=== PATIENT | female | born 1970 | race Caucasian/White ===

== ENCOUNTER → 2017-10-30 12:44 | Outpatient (CLI) | payer OTHER, SELFPAY ==
[2017-10-30 14:02] LABS: Alanine Aminotransferase 28 IU/L (9-52); Albumin 4.3 g/dL (3.5-5.0); Albumin Globulin Ratio 1.4 (1.0-2.8); Alkaline Phosphatase 62 U/L (38-126); Aspartate Aminotransferase 21 IU/L (14-36); Bilirubin Total 0.4 mg/dL (0.2-1.3); Calcium 9.7 mg/dL (8.4-10.2); Estimated Glomerular Filt Rate > 60.0 mL/min (>60); Globulin 3.1 g/dL (1.7-4.1); Glucose 86 mg/dL (70-100); HEMOLYSIS < 15 (0-50); Potassium 4.3 mmol/L (3.4-5.1); Sodium 141 mmol/L (137-145); Total Protein 7.4 g/dL (6.3-8.2)
[2017-10-30 14:31] LABS: TSH w/ Reflex to FT4 0.41 uIU/mL (0.47-4.68)
[2017-10-30 17:40] LABS: Free T4, Direct Thyroxine 0.79 ng/dL (0.78-2.19)
== END ==
PROVIDERS: Family Provider Family Medicine; PCP Family Medicine; Visit Provider Family Medicine
DX: E03.9 Hypothyroidism, unspecified (principal); N95.1 Menopausal and female climacteric states; T39.1X1A Poisoning by 4-Aminophenol derivatives, accidental (unintentional), initial encounter
CPT/HCPCS: 36415; 80053; 83001; 84439; 84443

== ENCOUNTER → 2017-12-13 10:09 | Outpatient (CLI) | payer OTHER, SELFPAY ==
[2017-12-13 11:44] LABS: TSH w/ Reflex to FT4 2.18 uIU/mL (0.47-4.68)
== END ==
PROVIDERS: PCP Family Medicine; Visit Provider Family Medicine
DX: E03.9 Hypothyroidism, unspecified (principal)
CPT/HCPCS: 36415; 84443

== ENCOUNTER → 2017-12-18 06:59 | Outpatient (CLI) | payer OTHER, SELFPAY ==
--- NOTE | 2017-12-18 | DI.CT.S_ITS ---
PROCEDURE: CT ABDOMEN W CON INDICATIONS: Left upper quadrant pain TECHNIQUE: After the administration of oral and intravenous contrast, 5 mm thick sections acquired from the diaphragms to the iliac crests. 5 mm thick coronal and sagittal reformats were acquired. For radiation dose reduction, the following was used: automated exposure control, adjustment of mA and/or kV according to patient size. COMPARISON: [facility], US, ABDOMEN COMPLETE, 07/12/2017, 15:58. [facility], CT, CT ABD PELVIS W CON, 04/17/2016, 22:07. FINDINGS: Image quality: Excellent. Lung bases: Lung bases are clear. Heart size is normal. Solid organs: Liver is normal in size and enhancement. Gallbladder has been previously resected. Biliary system is non dilated. Pancreas enhances normally. Spleen is normal in size and enhancement. No adrenal nodules. Kidneys are normal in size, without hydronephrosis. Peritoneum and bowel: Contrast enhanced bowel loops appear normal in caliber. No free fluid or air. Nodes and vessels: No retroperitoneal or mesenteric adenopathy by size criteria. Aorta and inferior vena cava are normal in size. Bones: No suspicious bony lesions. No vertebral body compression fractures. Miscellaneous: No ventral hernias. IMPRESSION: Prior cholecystectomy. No infection or neoplasm found. The source of persistent left upper quadrant pain is not identified. The lung bases appear normal. Dictated by: Jose Luis Garza M.D. on 12/18/2017 at 9:25 Approved by: Jose Luis Garza M.D. on 12/18/2017 at 9:27
== END ==
PROVIDERS: Family Provider Family Medicine; PCP Family Medicine; Visit Provider Family Medicine
DX: R10.12 Left upper quadrant pain (principal)
CPT/HCPCS: 74160; Q9967

== ENCOUNTER → 2018-01-06 11:16 | Outpatient (CLI) | payer OTHER, SELFPAY ==
[2018-01-06 13:36] LABS: Urine N gonorrhoeae NOT DETECTED
[2018-01-06 13:51] LABS: Urine Chlamydia NOT DETECTED
[2018-01-06 16:20] LABS: HIV 1 and 2 Antibody NEGATIVE (NEGATIVE); Hep C Virus Ab w/Reflex Quant NEGATIVE s/c (NEGATIVE)
[2018-01-10 09:41] LABS: Rapid Plasma Reagin NON-REACTIVE
== END ==
PROVIDERS: Family Provider Family Medicine; PCP Family Medicine; Visit Provider Family Medicine
DX: Z20.2 Contact with and (suspected) exposure to infections with a predominantly sexual mode of transmission (principal)
CPT/HCPCS: 36415; 86592; 86703; 86803; 87491; 87591

== ENCOUNTER → 2018-03-25 07:38 | Outpatient (CLI) | payer OTHER, SELFPAY ==
[2018-03-25 09:03] LABS: Add Manual Diff / Slide Review NO; Basophils Percent Auto 0.4 % (0-2); Eosinophils Percent Auto 0.8 % (2-4); Hemoglobin 14.5 g/dL (12.0-16.0); Lymphocytes Percent Auto 28.2 % (25-40); Mean Corpuscular HGB Conc 34.5 % (30-36); Mean Corpuscular Hemoglobin 30.6 PG (26-34); Mean Corpuscular Volume 88.9 fL (80-100); Monocytes Percent Auto 6.9 % (3-14); Neutrophils Absolute Auto 4500 /uL (3000-5900); Neutrophils Percent Auto 63.7 % (50-75); Platelet Count 307 X10^3/uL (150-400); Red Blood Cell Count 4.73 X10^6/uL (4.0-5.2); Red Cell Distribution Width 13.4 % (11.6-14.8)
[2018-03-25 09:12] LABS: Alanine Aminotransferase 36 IU/L (9-52); Albumin 4.6 g/dL (3.5-5.0); Albumin Globulin Ratio 1.4 (1.0-2.8); Alkaline Phosphatase 59 U/L (38-126); Aspartate Aminotransferase 25 IU/L (14-36); BUN Creatinine Ratio 28.6 (6-22); Bilirubin Total 0.6 mg/dL (0.2-1.3); Blood Urea Nitrogen 20 mg/dL (7-17); Calcium 9.2 mg/dL (8.4-10.2); Carbon Dioxide 28 mmol/L (22-32); Chloride 105 mmol/L (98-107); Cholesterol 225 mg/dL (140-199); Estimated Glomerular Filt Rate > 60.0 mL/min (>60); Globulin 3.4 g/dL (1.7-4.1); Glucose 104 mg/dL (70-100); HDL Cholesterol 59 mg/dL (40-60); HEMOLYSIS < 15 (0-50); LDL Cholesterol Calculated 148 mg/dL (<100); Potassium 4.3 mmol/L (3.4-5.1); Sodium 145 mmol/L (137-145); Triglycerides 91 mg/dL (35-150)
[2018-03-25 10:12] LABS: TSH w/ Reflex to FT4 4.33 uIU/mL (0.47-4.68)
== END ==
PROVIDERS: Family Provider Family Medicine; PCP Family Medicine; Visit Provider Family Medicine
DX: Z00.00 Encounter for general adult medical examination without abnormal findings (principal); E03.9 Hypothyroidism, unspecified; I10 Essential (primary) hypertension
CPT/HCPCS: 36415; 80053; 80061; 84443; 85025

== ENCOUNTER → 2018-04-04 16:04 | Outpatient (CLI) | payer OTHER, SELFPAY ==
[2018-04-04 16:51] LABS: Add Manual Diff / Slide Review NO; Basophils Percent Auto 0.3 % (0-2); Eosinophils Percent Auto 0.7 % (2-4); Hematocrit 40.3 % (36-46); Hemoglobin 13.9 g/dL (12.0-16.0); Lymphocytes Percent Auto 29.5 % (25-40); Mean Corpuscular HGB Conc 34.6 % (30-36); Mean Corpuscular Hemoglobin 31.2 PG (26-34); Mean Corpuscular Volume 90.1 fL (80-100); Monocytes Percent Auto 6.3 % (3-14); Neutrophils Absolute Auto 5600 /uL (3000-5900); Neutrophils Percent Auto 63.2 % (50-75); Platelet Count 292 X10^3/uL (150-400); Red Blood Cell Count 4.47 X10^6/uL (4.0-5.2); Red Cell Distribution Width 13.7 % (11.6-14.8); White Blood Cell Count 8.9 X10^3/uL (4.5-11.0)
[2018-04-04 17:26] LABS: Alanine Aminotransferase 43 IU/L (9-52); Albumin 4.5 g/dL (3.5-5.0); Albumin Globulin Ratio 1.4 (1.0-2.8); Alkaline Phosphatase 54 U/L (38-126); Aspartate Aminotransferase 29 IU/L (14-36); Bilirubin Total 0.3 mg/dL (0.2-1.3); Blood Urea Nitrogen 12 mg/dL (7-17); Calcium 8.9 mg/dL (8.4-10.2); Carbon Dioxide 28 mmol/L (22-32); Chloride 102 mmol/L (98-107); Estimated Glomerular Filt Rate > 60.0 mL/min (>60); Globulin 3.2 g/dL (1.7-4.1); Glucose 83 mg/dL (70-100); HEMOLYSIS < 15 (0-50); Potassium 3.7 mmol/L (3.4-5.1); Sodium 141 mmol/L (137-145); Total Protein 7.7 g/dL (6.3-8.2)
[2018-04-04 17:40] LABS: HCG Quantitative /Beta subunit < 2.39 mIU/mL
[2018-04-04 17:42] LABS: C-Reactive Protein Quant < 0.5 mg/dL (<1.0); Free T3, Triiodothyronine Free 2.63 pg/mL (2.77-5.27); Free T4, Direct Thyroxine 0.78 ng/dL (0.78-2.19)
[2018-04-04 18:20] LABS: Erythrocyte Sedimentation Rate 13 MM/HR (0-20)
== END ==
PROVIDERS: Family Provider Family Medicine; PCP Family Medicine; Visit Provider Family Medicine
DX: E03.9 Hypothyroidism, unspecified (principal); R53.83 Other fatigue
CPT/HCPCS: 36415; 80053; 84439; 84481; 84702; 85025; 85651; 86140

== ENCOUNTER → 2018-06-05 08:53 | Outpatient (CLI) | payer OTHER, SELFPAY ==
[2018-06-05 10:22] LABS: Free T3, Triiodothyronine Free 2.73 pg/mL (2.77-5.27)
[2018-06-05 10:35] LABS: Thyroid Stimulating Hormone 2.66 uIU/mL (0.47-4.68)
== END ==
PROVIDERS: PCP Family Medicine; Visit Provider Family Medicine
DX: E03.9 Hypothyroidism, unspecified (principal)
CPT/HCPCS: 36415; 84439; 84443; 84481

== ENCOUNTER → 2018-06-17 11:05 | Outpatient (CLI) | payer OTHER, SELFPAY ==
--- NOTE | 2018-06-17 | DI.MG.S_ITS ---
BILATERAL DIGITAL SCREENING MAMMOGRAM 3D/2D WITH CAD: 06/17/2018 CLINICAL: Routine screening. Comparison is made to exams dated: 01/23/2017 mammogram - [facility], 01/10/2016 mammogram, and 10/26/2014 mammogram - [facility]. There are scattered fibroglandular elements in both breasts. Current study was also evaluated with a Computer Aided Detection (CAD) system. No significant masses, calcifications, or other findings are seen in either breast. There has been no significant interval change. IMPRESSION: NEGATIVE There is no mammographic evidence of malignancy. A 1 year screening mammogram is recommended. This exam was interpreted at Station ID: [id number]. NOTE: For mammograms, a report in lay terms will be sent to the patient. Approximately 15% of breast malignancies will not be visualized mammographically. In the management of a palpable breast mass, a negative mammogram must not discourage biopsy of a clinically suspicious lesion. Electronically Signed By: Cookie medina/jesus:06/17/2018 16:33:08 letter sent: Normal Exam ACR BI-RADS Category 1: Negative [id number]
== END ==
PROVIDERS: Family Provider Family Medicine; PCP Family Medicine; Visit Provider Family Medicine
DX: Z12.31 Encounter for screening mammogram for malignant neoplasm of breast (principal)
CPT/HCPCS: 77063; 77067

== ENCOUNTER → 2018-08-16 12:06 | Outpatient (CLI) | payer OTHER, SELFPAY ==
[2018-08-16 13:50] LABS: Free T3, Triiodothyronine Free 5.56 pg/mL (2.77-5.27); Free T4, Direct Thyroxine 0.73 ng/dL (0.78-2.19)
[2018-08-16 14:04] LABS: Thyroid Stimulating Hormone 1.91 uIU/mL (0.47-4.68)
== END ==
LOC: LAB 12:08
PROVIDERS: Family Provider Family Medicine; PCP Family Medicine; Visit Provider Family Medicine
DX: E03.9 Hypothyroidism, unspecified (principal)
CPT/HCPCS: 36415; 84439; 84443; 84481

== ENCOUNTER → 2018-09-06 10:02 | Outpatient (CLI) | payer OTHER, SELFPAY ==
[2018-09-06 10:47] LABS: Add Manual Diff / Slide Review NO; Basophils Absolute Auto 0 /uL (0-100); Basophils Percent Auto 0.6 % (0-2); Eosinophils Absolute Auto 100 /uL (0-450); Hematocrit 39.8 % (36-46); Lymphocytes Absolute Auto 1800 /uL (1100-4500); Lymphocytes Percent Auto 31.1 % (25-40); Mean Corpuscular HGB Conc 35.2 % (30-36); Mean Corpuscular Hemoglobin 30.9 PG (26-34); Mean Corpuscular Volume 87.8 fL (80-100); Monocytes Absolute Auto 400 /uL (0-900); Monocytes Percent Auto 6.7 % (3-14); Neutrophils Absolute Auto 3500 /uL (1500-7000); Neutrophils Percent Auto 60.6 % (50-75); Platelet Count 321 X10^3/uL (150-400); Red Blood Cell Count 4.53 X10^6/uL (4.0-5.2); Red Cell Distribution Width 12.7 % (11.6-14.8); White Blood Cell Count 5.8 X10^3/uL (4.5-11.0)
[2018-09-06 11:05] LABS: HEMOLYSIS < 15 (0-50); Iron 67 ug/dL (37-170)
[2018-09-06 11:07] LABS: Alanine Aminotransferase 29 IU/L (9-52); Albumin 4.3 g/dL (3.5-5.0); Albumin Globulin Ratio 1.3 (1.0-2.8); Alkaline Phosphatase 67 U/L (38-126); Aspartate Aminotransferase 26 IU/L (14-36); BUN Creatinine Ratio 21.7 (6-22); Bilirubin Total 0.5 mg/dL (0.2-1.3); Blood Urea Nitrogen 13 mg/dL (7-17); Carbon Dioxide 33 mmol/L (22-32); Chloride 97 mmol/L (98-107); Cholesterol 200 mg/dL (140-199); Estimated Glomerular Filt Rate > 60.0 mL/min (>60); Globulin 3.3 g/dL (1.7-4.1); Glucose 97 mg/dL (70-100); HDL Cholesterol 52 mg/dL (40-60); HEMOLYSIS < 15 (0-50); LDL Cholesterol Calculated 130 mg/dL (<100); Potassium 3.5 mmol/L (3.4-5.1); Sodium 139 mmol/L (137-145); Total Protein 7.6 g/dL (6.3-8.2); Triglycerides 91 mg/dL (35-150)
[2018-09-06 11:16] LABS: Percent Iron Saturation 21 % (15-50); Total Iron Binding Capacity 324 ug/dL (265-497); Transferrin 258 mg/dL (206-381)
[2018-09-06 11:24] LABS: Vitamin D 25 Hydroxy (D3) 17.2 ng/mL (30.0-100.0)
[2018-09-06 11:37] LABS: Thyroid Stimulating Hormone 1.02 uIU/mL (0.47-4.68)
[2018-09-06 11:42] LABS: Ferritin 54.9 ng/mL (6.27-137)
[2018-09-06 11:58] LABS: Hemoglobin A1C% w Est Avg Glu 5.8 % (4.0-6.0)
[2018-09-06 12:12] LABS: Folate 8.9 ng/mL (2.76-20.0); Vitamin B12 396 pg/mL (239-931)
[2018-09-09 18:38] LABS: Vitamin B1 147 nmol/L (78-185)
[2018-09-10 14:19] LABS: Vitamin A 46 mcg/dL (38-98)
[2018-09-10 17:32] LABS: Zinc 69 mcg/dL (60-130)
== END ==
PROVIDERS: PCP Family Medicine; Visit Provider Surgery
DX: M25.50 Pain in unspecified joint (principal); M54.9 Dorsalgia, unspecified; F41.8 Other specified anxiety disorders; G47.33 Obstructive sleep apnea (adult) (pediatric)
CPT/HCPCS: 36415; 80053; 80061; 82306; 82607; 82728; 82746; 83036; 83540; 83550; 84425; 84443; 84590; 84630; 85025

== ENCOUNTER → 2019-01-16 08:41 | Outpatient (CLI) | payer OTHER, SELFPAY ==
[2019-01-16 09:39] LABS: Hemoglobin 14.2 g/dL (12.0-16.0); Mean Corpuscular HGB Conc 34.6 % (30-36); Mean Corpuscular Hemoglobin 30.8 PG (26-34); Platelet Count 321 X10^3/uL (150-400); Red Cell Distribution Width 13.7 % (11.6-14.8)
[2019-01-16 09:41] LABS: Alanine Aminotransferase 21 IU/L (9-52); Albumin 4.3 g/dL (3.5-5.0); Albumin Globulin Ratio 1.4 (1.0-2.8); Alkaline Phosphatase 70 U/L (38-126); Aspartate Aminotransferase 19 IU/L (14-36); Bilirubin Total 0.8 mg/dL (0.2-1.3); Blood Urea Nitrogen 9 mg/dL (7-17); Calcium 9.4 mg/dL (8.4-10.2); Carbon Dioxide 26 mmol/L (22-32); Chloride 103 mmol/L (98-107); Cholesterol 186 mg/dL (140-199); Estimated Glomerular Filt Rate > 60.0 mL/min (>60); Glucose 102 mg/dL (70-100); HDL Cholesterol 51 mg/dL (40-60); HEMOLYSIS < 15 (0-50); LDL Cholesterol Calculated 112 mg/dL (<100); Potassium 3.6 mmol/L (3.4-5.1); Sodium 140 mmol/L (137-145); Total Protein 7.3 g/dL (6.3-8.2); Triglycerides 115 mg/dL (35-150)
[2019-01-16 09:52] LABS: HEMOLYSIS < 15 (0-50); Iron 68 ug/dL (37-170)
[2019-01-16 10:03] LABS: Percent Iron Saturation 21 % (15-50); Total Iron Binding Capacity 325 ug/dL (265-497); Transferrin 262 mg/dL (206-381)
[2019-01-16 10:13] LABS: Vitamin D 25 Hydroxy (D3) 27.3 ng/mL (30.0-100.0)
[2019-01-16 10:24] LABS: Thyroid Stimulating Hormone 1.16 uIU/mL (0.47-4.68)
[2019-01-16 10:45] LABS: Folate 6.4 ng/mL (2.76-20.0)
[2019-01-16 20:00] LABS: Vitamin B12 391 pg/mL (239-931)
[2019-01-20 14:48] LABS: Vitamin A 42 mcg/dL (38-98)
[2019-01-20 17:53] LABS: Zinc 65 mcg/dL (60-130)
[2019-01-21 08:08] LABS: Vitamin B1 88 nmol/L (78-185)
== END ==
PROVIDERS: PCP Family Medicine; Visit Provider Surgery
DX: K91.2 Postsurgical malabsorption, not elsewhere classified (principal); I10 Essential (primary) hypertension; E03.9 Hypothyroidism, unspecified; G47.33 Obstructive sleep apnea (adult) (pediatric)
CPT/HCPCS: 36415; 80053; 80061; 82306; 82607; 82728; 82746; 83540; 83550; 84425; 84443; 84590; 84630; 85027

== ENCOUNTER → 2019-05-04 08:51 | Outpatient (CLI) | payer OTHER, SELFPAY ==
[2019-05-04 09:51] LABS: Add Manual Diff / Slide Review NO; Basophils Absolute Auto 100 /uL (0-100); Basophils Percent Auto 0.9 % (0-2); Eosinophils Absolute Auto 100 /uL (0-450); Eosinophils Percent Auto 1.2 % (2-4); Hematocrit 41.4 % (36-46); Hemoglobin 14.3 g/dL (12.0-16.0); Lymphocytes Absolute Auto 1800 /uL (1100-4500); Lymphocytes Percent Auto 27.6 % (25-40); Mean Corpuscular HGB Conc 34.6 % (30-36); Mean Corpuscular Hemoglobin 31.8 PG (26-34); Mean Corpuscular Volume 91.9 fL (80-100); Monocytes Absolute Auto 400 /uL (0-900); Monocytes Percent Auto 5.8 % (3-14); Neutrophils Absolute Auto 4100 /uL (1500-7000); Neutrophils Percent Auto 64.5 % (50-75); Platelet Count 258 X10^3/uL (150-400); Red Cell Distribution Width 13.6 % (11.6-14.8); White Blood Cell Count 6.4 X10^3/uL (4.5-11.0)
[2019-05-04 10:06] LABS: Alanine Aminotransferase 14 IU/L (<35); Albumin 4.2 g/dL (3.5-5.0); Albumin Globulin Ratio 1.4 (1.0-2.8); Alkaline Phosphatase 70 U/L (38-126); Aspartate Aminotransferase 21 IU/L (14-36); BUN Creatinine Ratio 18.3 (6-22); Bilirubin Total 0.9 mg/dL (0.2-1.3); Blood Urea Nitrogen 11 mg/dL (7-17); Calcium 9.1 mg/dL (8.4-10.2); Carbon Dioxide 26 mmol/L (22-32); Chloride 104 mmol/L (98-107); Cholesterol 191 mg/dL (140-199); Estimated Glomerular Filt Rate > 60.0 mL/min (>60); Globulin 3.1 g/dL (1.7-4.1); Glucose 93 mg/dL (70-100); HDL Cholesterol 51 mg/dL (40-60); HEMOLYSIS 20 (0-50); Iron 118 ug/dL (37-170); LDL Cholesterol Calculated 120 mg/dL (<100); Potassium 3.8 mmol/L (3.4-5.1); Sodium 138 mmol/L (137-145); Total Protein 7.3 g/dL (6.3-8.2); Triglycerides 102 mg/dL (35-150)
[2019-05-04 10:17] LABS: Percent Iron Saturation 38 % (15-50); Total Iron Binding Capacity 308 ug/dL (265-497); Transferrin 257 mg/dL (206-381)
[2019-05-04 10:34] LABS: Vitamin D 25 Hydroxy (D3) 29.2 ng/mL (30.0-100.0)
[2019-05-04 10:43] LABS: Ferritin 41.9 ng/mL (6.27-137); HEMOLYSIS < 15 (0-50)
[2019-05-04 11:14] LABS: Folate 6.2 ng/mL (2.76-20.0); Vitamin B12 415 pg/mL (239-931)
[2019-05-04 11:41] LABS: Free T4, Direct Thyroxine 0.58 ng/dL (0.78-2.19)
[2019-05-08 07:41] LABS: Vitamin B1 128 nmol/L (78-185)
[2019-05-08 13:22] LABS: Vitamin A 45 mcg/dL (38-98)
== END ==
PROVIDERS: PCP Family Medicine; Visit Provider Surgery
DX: K91.2 Postsurgical malabsorption, not elsewhere classified (principal); I10 Essential (primary) hypertension; E03.9 Hypothyroidism, unspecified; K21.9 Gastro-esophageal reflux disease without esophagitis
CPT/HCPCS: 36415; 80053; 80061; 82306; 82607; 82728; 82746; 83540; 83550; 84425; 84439; 84443; 84481; 84590; 84630; 85025

== ENCOUNTER → 2019-07-07 11:07 | Outpatient (CLI) | payer OTHER, MEDICAID, SELFPAY ==
[2019-07-07 13:21] LABS: Free T3, Triiodothyronine Free 6.17 pg/mL (2.77-5.27); Free T4, Direct Thyroxine 1.08 ng/dL (0.78-2.19)
[2019-07-07 13:35] LABS: Thyroid Stimulating Hormone 0.07 uIU/mL (0.47-4.68)
== END ==
PROVIDERS: PCP Family Medicine; Visit Provider Family Medicine
DX: E03.9 Hypothyroidism, unspecified (principal)
CPT/HCPCS: 36415; 84439; 84443; 84481

== ENCOUNTER → 2020-03-21 09:37 | Outpatient (CLI) | payer OTHER, MEDICAID, SELFPAY ==
[2020-03-21 10:33] LABS: Add Manual Diff / Slide Review NO; Basophils Absolute Auto 0 /uL (0-100); Basophils Percent Auto 0.5 % (0-2); Eosinophils Absolute Auto 100 /uL (0-450); Eosinophils Percent Auto 1.2 % (2-4); Hematocrit 40.5 % (36-46); Hemoglobin 13.8 g/dL (12.0-16.0); Lymphocytes Absolute Auto 2200 /uL (1100-4500); Lymphocytes Percent Auto 40.3 % (25-40); Mean Corpuscular HGB Conc 34.1 % (30-36); Mean Corpuscular Hemoglobin 32.9 PG (26-34); Mean Corpuscular Volume 96.6 fL (80-100); Monocytes Absolute Auto 500 /uL (0-900); Neutrophils Absolute Auto 2600 /uL (1500-7000); Platelet Count 260 X10^3/uL (150-400); Red Blood Cell Count 4.19 X10^6/uL (4.0-5.2); Red Cell Distribution Width 13.2 % (11.6-14.8); White Blood Cell Count 5.4 X10^3/uL (4.5-11.0)
[2020-03-21 10:55] LABS: Alanine Aminotransferase 15 IU/L (<35); Albumin Globulin Ratio 1.3 (1.0-2.8); Alkaline Phosphatase 72 U/L (38-126); Aspartate Aminotransferase 24 IU/L (14-36); BUN Creatinine Ratio 20.6 (6-22); Bilirubin Total 0.9 mg/dL (0.2-1.3); Blood Urea Nitrogen 13 mg/dL (7-17); Calcium 9.2 mg/dL (8.4-10.2); Carbon Dioxide 32 mmol/L (22-32); Chloride 102 mmol/L (98-107); Cholesterol 209 mg/dL (140-199); Estimated Glomerular Filt Rate > 60.0 mL/min (>60); Globulin 3.2 g/dL (1.7-4.1); Glucose 90 mg/dL (70-100); HDL Cholesterol 86 mg/dL (40-60); HEMOLYSIS 18 (0-50); LDL Cholesterol Calculated 103 mg/dL (<100); Potassium 3.6 mmol/L (3.4-5.1); Sodium 138 mmol/L (137-145); Total Protein 7.2 g/dL (6.3-8.2); Triglycerides 101 mg/dL (35-150)
[2020-03-21 11:08] LABS: Free T3, Triiodothyronine Free 2.63 pg/mL (2.77-5.27); Free T4, Direct Thyroxine 0.86 ng/dL (0.78-2.19)
[2020-03-21 11:22] LABS: Thyroid Stimulating Hormone 4.09 uIU/mL (0.47-4.68)
== END ==
PROVIDERS: PCP Family Medicine; Referring Provider Family Medicine; Visit Provider Family Medicine
DX: E03.9 Hypothyroidism, unspecified (principal); N95.1 Menopausal and female climacteric states; Z98.84 Bariatric surgery status
CPT/HCPCS: 36415; 80053; 80061; 83001; 84439; 84443; 84481; 85025

== ENCOUNTER → 2020-12-19 08:06 | Outpatient (CLI) | payer OTHER, MEDICAID, SELFPAY ==
[2020-12-19 10:11] LABS: Free T3, Triiodothyronine Free 7.21 pg/mL (2.77-5.27); Free T4, Direct Thyroxine 0.92 ng/dL (0.78-2.19)
[2020-12-19 10:25] LABS: Thyroid Stimulating Hormone < 0.015 uIU/mL (0.47-4.68)
[2020-12-19 10:30] LABS: Vitamin D 25 Hydroxy (D3) 27.9 ng/mL (30.0-100.0)
== END ==
PROVIDERS: PCP Family Medicine; Referring Provider Family Medicine; Visit Provider Family Medicine
DX: E03.9 Hypothyroidism, unspecified (principal); E55.9 Vitamin D deficiency, unspecified; Z98.84 Bariatric surgery status
CPT/HCPCS: 36415; 82306; 84439; 84443; 84481

== ENCOUNTER → 2020-12-30 09:32 | Outpatient (CLI) | payer OTHER, MEDICAID, SELFPAY ==
--- NOTE | 2020-12-30 09:36 | DI.RAD.S_ITS ---
PROCEDURE: XR KNEE LT 3V INDICATIONS: left knee pain and swelling TECHNIQUE: 3 views of the knee were acquired. COMPARISON: None. FINDINGS: Bones: No fractures or dislocations. No suspicious bony lesions. There is lateral facet patellofemoral joint degenerative osteoarthritis that is moderate in severity. Soft tissues: Small joint effusion. No suspicious soft tissue calcifications. IMPRESSION: Moderate degenerative osteoarthritic change at the lateral facet of the patellofemoral joint. Small associated joint effusion in the suprapatellar bursal space. No loose body seen, no recent trauma suspected. Dictated by: Jose Luis Garza M.D. on 12/30/2020 at 11:12 Approved by: Jose Luis Garza M.D. on 12/30/2020 at 11:12
== END ==
PROVIDERS: PCP Family Medicine; Referring Provider Family Medicine; Visit Provider Family Medicine
DX: M25.562 Pain in left knee (principal); M25.462 Effusion, left knee
CPT/HCPCS: 73562

== ENCOUNTER 2023-11-10 05:22 | Emergency (ER) | payer SELFPAY ==
[2023-11-10] VITALS (10 sets, daily range): BP systolic 133–190; BP diastolic 78–84; PULSE 84–101; RESP 15–22; O2SAT 94–98; BMI 30.7
--- NOTE | 2023-11-10 05:26 | ED.GENADULT ---
HPI - General Adult <Fredis Carmona DO - Last Filed: 11/10/23 18:07> General Chief complaint: Seizure Stated complaint: siezure Time Seen by Provider: 11/10/23 05:23 Limitations: altered mental status History of Present Illness HPI narrative: Patient is a 53-year-old female. 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 I was called from another patient's room for evaluation of this patient as she was having apparent seizure-like activity. Patient was found seizing by the family member of another patient who had just arrived in the emergency department. 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 Unsure as to how long the seizure activity was lasting. Upon my initial evaluation she did appear to have bitten her tongue. She did have blood-tinged mucus from her mouth. She was cyanotic. She did have a pulse. Patient does not have a seizure history per her problem list in the EMR. Unsure if she was ever had a seizure in the past. Did not have any other HPI. Related Data Home Medications Medication Instructions Recorded Confirmed triamcinolone acetonide 0.1 % 1 applic topical BID 10/15/17 03/22/20 topical cream Previous Rx's Medication Instructions Recorded cholecalciferol (vitamin D3) 250 10,000 unit PO QWEEK #12 tabs 10/10/18 mcg (10,000 unit) tablet fluoxetine 20 mg capsule 40 mg (2 x 20 mg) PO DAILY #180 09/12/21 caps levothyroxine 125 mcg tablet 125 mcg PO DAILY #90 tabs 09/12/21 liothyronine 5 mcg tablet 10 mcg (2 x 5 mcg) PO DAILY #180 09/12/21 tabs Allergies Allergy/AdvReac Type Severity Reaction Status Date / Time amoxicillin [AMOXICILLIN] Allergy Unknown hives Verified 03/22/20 11:09 sertraline [From ZOLOFT] Allergy Unknown javon Verified 03/22/20 11:09 swelling venlafaxine [From EFFEXOR] Allergy Unknown pancreatitis Verified 03/22/20 11:09 and increased BP Review of Systems <DO Jp Viera Last Filed: 11/10/23 18:07> Review of Systems ROS Unobtainable: Unobtainable due to medical condition Patient History <DO Jp Viera Last Filed: 11/10/23 18:07> Medical History History of endometrial ablation (02/08/17) Depression Anxiety Headache MRSA (methicillin resistant Staphylococcus aureus) (~2010) Chicken pox (~1984) Gonorrhea (~1987) Urinary incontinence Pancreatitis (~2015) Hypothyroidism (~1997) Hypertension (~2012) Surgical History Anesthesia History of weight loss surgery Status post breast reduction Status post delivery (12/22/94) Status post delivery (10/20/96) Status post delivery (10/26/99) Status post cholecystectomy Status post endometrial ablation Family History Father Age: 80 Hypertension High cholesterol Stroke Mother Age: 77 Hypertension Hypothyroid Sister Age: 55 Stroke Hypothyroid Grandfather No problems noted. Grandmother No problems noted. Grandfather No problems noted. Grandmother No problems noted. Social History pets and animals: No education level: college occupational status: employed leisure activities: sports and other other: Walking, hiking seatbelt use: always helmet use: Yes water heater temp set < 120 deg: Yes working smoke detector in home: Yes fire extinguisher in home: Yes carbon monox detector in home: Yes firearms in home: No Smoking Status: Never smoker alcohol intake: current substance use type: does not use during the past year weight has: increased > 10 lbs well-balanced diet: daily or most days daily servings fruits/ve-4 caffeine: Yes (1-2 caffeine drinks per day) eating out: rarely or never Type(s) of exercise: walking frequency: 1-2 times per week duration: 15-30 minutes/day Smoking Status: Never smoker alcohol intake frequency: 0-2 drinks per day Substance Use Type: marijuana Exam <Fredis Carmona DO - Last Filed: 11/10/23 18:07> Initial Vital Signs Initial Vital Signs: Vital Signs Oxygen Delivery Method Room Air 11/10/23 05:23 Const General: in distress HENMT Mouth: tongue abnormal Resp Other: Sonorous respirations with gurgling. Cardio Rate: regular rate Rhythm: regular rhythm GI Inspection: normal to inspection Skin Other: Initially cyanotic skin. With a jaw thrust became normal color. Neuro Other: No seizure activity witnessed by myself however the patient was unresponsive upon my initial evaluation. After a short period of time the patient was obviously confused. Was moving all 4 extremities equally. Pupils were equal round and reactive. Patient was minimally cooperative. Extrem Other: No gross deformities <Quita Arriaza, DO - Last Filed: 11/10/23 18:57> Initial Vital Signs Initial Vital Signs: Vital Signs Oxygen Delivery Method Room Air 11/10/23 05:23 Course <Fredis Carmona, DO - Last Filed: 11/10/23 18:07> Orders Ordered: Discontinued Medications Acetaminophen (Acetaminophen 325 Mg Tablet) 650 mg PO NOW ONE Stop: 11/10/23 07:19 Last Admin: 11/10/23 07:30 Dose: 650 mg Documented By: AVERY Lorazepam (Lorazepam 2 Mg/Ml Inj) 2 mg IM NOW ONE Stop: 11/10/23 05:24 Last Admin: 11/10/23 05:27 Dose: 2 mg Documented By: SHYANN Lorazepam (Lorazepam 2 Mg/Ml Inj) 1 mg IV NOW ONE Stop: 11/10/23 05:25 Last Admin: 11/10/23 05:28 Dose: 1 mg Documented By: SHYANN Midazolam HCl (Midazolam 5 Mg/Ml Vial) 5 mg IM NOW ONE Stop: 11/10/23 05:24 Last Admin: 11/10/23 05:27 Dose: 5 mg Documented By: KD Vital Signs Vital signs: Vital Signs - 8 hr 11/10/23 05:23 11/10/23 07:00 11/10/23 07:08 Pulse Rate 91 H 93 H Respiratory Rate 21 22 Blood Pressure Pulse Oximetry 97 97 Oxygen Delivery Method Room Air Room Air Room Air 11/10/23 07:08 11/10/23 07:50 11/10/23 07:52 Pulse Rate 91 H Respiratory Rate Blood Pressure 190/84 H 153/83 H Pulse Oximetry 94 Oxygen Delivery Method 11/10/23 07:52 11/10/23 08:00 11/10/23 08:01 Pulse Rate 91 H 89 87 Respiratory Rate 17 20 19 Blood Pressure Pulse Oximetry 94 98 97 Oxygen Delivery Method Room Air Room Air 11/10/23 08:01 11/10/23 08:15 Pulse Rate 84 Respiratory Rate 16 Blood Pressure 143/79 H Pulse Oximetry 98 Oxygen Delivery Method Room Air <Quita Arriaza DO - Last Filed: 11/10/23 18:57> Orders Ordered: Discontinued Medications Acetaminophen (Acetaminophen 325 Mg Tablet) 650 mg PO NOW ONE Stop: 11/10/23 07:19 Last Admin: 11/10/23 07:30 Dose: 650 mg Documented By: AVERY Lorazepam (Lorazepam 2 Mg/Ml Inj) 2 mg IM NOW ONE Stop: 11/10/23 05:24 Last Admin: 11/10/23 05:27 Dose: 2 mg Documented By: SHYANN Lorazepam (Lorazepam 2 Mg/Ml Inj) 1 mg IV NOW ONE Stop: 11/10/23 05:25 Last Admin: 11/10/23 05:28 Dose: 1 mg Documented By: SHYANN Midazolam HCl (Midazolam 5 Mg/Ml Vial) 5 mg IM NOW ONE Stop: 11/10/23 05:24 Last Admin: 11/10/23 05:27 Dose: 5 mg Documented By: SHYANN Vital Signs Vital signs: Vital Signs - 8 hr 11/10/23 05:23 11/10/23 07:00 11/10/23 07:08 Pulse Rate 91 H 93 H Respiratory Rate 21 22 Blood Pressure Pulse Oximetry 97 97 Oxygen Delivery Method Room Air Room Air Room Air 11/10/23 07:08 11/10/23 07:50 11/10/23 07:52 Pulse Rate 91 H Respiratory Rate Blood Pressure 190/84 H 153/83 H Pulse Oximetry 94 Oxygen Delivery Method 11/10/23 07:52 11/10/23 08:00 11/10/23 08:01 Pulse Rate 91 H 89 87 Respiratory Rate 17 20 19 Blood Pressure Pulse Oximetry 94 98 97 Oxygen Delivery Method Room Air Room Air 11/10/23 08:01 11/10/23 08:15 Pulse Rate 84 Respiratory Rate 16 Blood Pressure 143/79 H Pulse Oximetry 98 Oxygen Delivery Method Room Air Medical Decision Making <Fredis Carmona DO - Last Filed: 11/10/23 18:07> Medical Records Medical records reviewed: Yes I reviewed the patient's medical records. Lab Data Lab results reviewed: Yes I reviewed the patient's lab results. 11/10/23 05:23 11/10/23 05:23 Labs: Lab Results 11/10/23 11/10/23 Range/Units 05:23 08:00 WBC 12.9 H (4.5-11.0) X10^3/uL RBC 4.65 (4.0-5.2) X10^6/uL Hgb 14.4 (12.0-16.0) g/dL Hct 43.4 (36-46) % MCV 93.3 (80-100) fL MCH 31.0 (26-34) PG MCHC 33.3 (30-36) % RDW 12.8 (11.6-14.8) % Plt Count 387 (150-400) X10^3/uL Neut % (Auto) 35.6 L (50-75) % Lymph % (Auto) 53.1 H (25-40) % [place] % (Auto) 9.4 (3-14) % Eos % (Auto) 1.3 L (2-4) % Baso % (Auto) 0.6 (0-2) % Neut # (Auto) 4600 (0186-4830) /uL Lymph # (Auto) 6900 H (1048-5084) /uL [place] # (Auto) 1200 H (0-900) /uL Eos # (Auto) 200 (0-450) /uL Baso # (Auto) 100 (0-100) /uL Sodium 137 (137-145) mmol/L Potassium 3.7 (3.4-5.1) mmol/L Chloride 103 (98-107) mmol/L Carbon Dioxide 16 L (22-32) mmol/L BUN 14 (7-17) mg/dL Creatinine 0.66 (0.52-1.04) mg/dL Estimated GFR > 60 (>60) mL/min BUN/Creatinine Ratio 21.2 (6-22) Glucose 121 H (70-100) mg/dL Calcium 9.7 (8.4-10.2) mg/dL Total Bilirubin 0.7 (0.2-1.3) mg/dL AST 31 (14-36) IU/L ALT 21 (<35) IU/L Alkaline Phosphatase 65 (38-126) U/L Total Protein 7.7 (6.3-8.2) g/dL Albumin 4.9 (3.5-5.0) g/dL Globulin 2.8 (1.7-4.1) g/dL Albumin/Globulin Ratio 1.8 (1.0-2.8) Lipase 335 H (23-300) U/L Procalcitonin < 0.030 (<0.5) ng/mL TSH 5.49 H (0.47-4.68) uIU/mL U Opiates 300ng/mL cut Negative (Negative) Ur Oxycodone Screen Negative (Negative) Urine Methadone Screen Negative (Negative) Ur Barbiturates Screen Negative (Negative) U Tricyclic Antidepress Negative (Negative) Ur Phencyclidine Scrn Negative (Negative) Ur Amphetamines Screen Negative (Negative) U Methamphetamines Scrn Negative (Negative) Ur MDMA Scrn (Ecstasy) Negative (Negative) U Benzodiazepines Scrn Positive H (Negative) Urine Cocaine Screen Negative (Negative) U Marijuana (THC) Screen Negative (Negative) Urine pH Normal (Normal) Urine Specific [place] Normal (Normal) Ethyl Alcohol < 10 ( - 10) mg/dL Ur Creatinine Normal (Normal) MDM Narrative Medical decision making narrative: After multiple doses of benzodiazepines the patient did become calm. She was never completely sedated but is somnolent. The soft restraints were removed once the patient calmed down. She became more oriented. It appears that she has had seizures in the past. Is not on any antiseizure medications. There was no signs of trauma. We will hold on a head CT for now that we know that she has had seizures in the past. The patient just going to need to wake up and become more oriented and ambulate and tolerate oral intake. Care turned over to day provider to follow up and disposition. <Quita Arriaza, DO - Last Filed: 11/10/23 18:57> Lab Data Labs: Lab Results 11/10/23 11/10/23 Range/Units 05:23 08:00 WBC 12.9 H (4.5-11.0) X10^3/uL RBC 4.65 (4.0-5.2) X10^6/uL Hgb 14.4 (12.0-16.0) g/dL Hct 43.4 (36-46) % MCV 93.3 (80-100) fL MCH 31.0 (26-34) PG MCHC 33.3 (30-36) % RDW 12.8 (11.6-14.8) % Plt Count 387 (150-400) X10^3/uL Neut % (Auto) 35.6 L (50-75) % Lymph % (Auto) 53.1 H (25-40) % Summit % (Auto) 9.4 (3-14) % Eos % (Auto) 1.3 L (2-4) % Baso % (Auto) 0.6 (0-2) % Neut # (Auto) 4600 (0898-1689) /uL Lymph # (Auto) 6900 H (3549-8258) /uL [place] # (Auto) 1200 H (0-900) /uL Eos # (Auto) 200 (0-450) /uL Baso # (Auto) 100 (0-100) /uL Sodium 137 (137-145) mmol/L Potassium 3.7 (3.4-5.1) mmol/L Chloride 103 (98-107) mmol/L Carbon Dioxide 16 L (22-32) mmol/L BUN 14 (7-17) mg/dL Creatinine 0.66 (0.52-1.04) mg/dL Estimated GFR > 60 (>60) mL/min BUN/Creatinine Ratio 21.2 (6-22) Glucose 121 H (70-100) mg/dL Calcium 9.7 (8.4-10.2) mg/dL Total Bilirubin 0.7 (0.2-1.3) mg/dL AST 31 (14-36) IU/L ALT 21 (<35) IU/L Alkaline Phosphatase 65 (38-126) U/L Total Protein 7.7 (6.3-8.2) g/dL Albumin 4.9 (3.5-5.0) g/dL Globulin 2.8 (1.7-4.1) g/dL Albumin/Globulin Ratio 1.8 (1.0-2.8) Lipase 335 H (23-300) U/L Procalcitonin < 0.030 (<0.5) ng/mL TSH 5.49 H (0.47-4.68) uIU/mL U Opiates 300ng/mL cut Negative (Negative) Ur Oxycodone Screen Negative (Negative) Urine Methadone Screen Negative (Negative) Ur Barbiturates Screen Negative (Negative) U Tricyclic Antidepress Negative (Negative) Ur Phencyclidine Scrn Negative (Negative) Ur Amphetamines Screen Negative (Negative) U Methamphetamines Scrn Negative (Negative) Ur MDMA Scrn (Ecstasy) Negative (Negative) U Benzodiazepines Scrn Positive H (Negative) Urine Cocaine Screen Negative (Negative) U Marijuana (THC) Screen Negative (Negative) Urine pH Normal (Normal) Urine Specific [place] Normal (Normal) Ethyl Alcohol < 10 ( - 10) mg/dL Ur Creatinine Normal (Normal) Imaging Data CT scan - head: Radiologist's Impression: Close Head CT (Signed) Meme Siegel - 11/10/23 Knee X-Ray (Signed) Jose Luis Garza - 12/30/20 Mammogram Screening (Signed) RussCookie - 06/17/[address] (Signed) Jose Luis Garza - 12/18/17 [place] [address] CT Scan Report Signed Patient: Alva Acharya MR#: [id number] : 1970 Acct:[id number] Age/Sex: 53 / F Date of Service: 11/10/23 Loc: ED Accession Number: [id number] Procedure: CT head/brain wo/w con Ordering Provider: Quita Arriaza D.O. PROCEDURE: CT HEAD/BRAIN WO/W CON INDICATIONS: seizure, 2nd time. physician requested. TECHNIQUE: 4.5 mm thick angled axial sections acquired from the foramen magnum to the vertex before and after the administration of intravenous contrast, with coronal and sagittal reformats. For radiation dose reduction, the following was used: automated exposure control, adjustment of mA and/or kV according to patient size. COMPARISON: MR, MR BRAIN W&WO CON, 07/09/2016, 10:52. [facility], CT, CT BRAIN WO CON, 06/26/2016, 12:06. FINDINGS: Image quality: Excellent. CSF Spaces: Basal cisterns are patent. No extra-axial fluid collections. Ventricles are normal in size and shape. Brain: No midline shift. No intracranial bleeds or masses. No abnormal intracranial enhancement. Franco-white interface appears normal. Skull and face: Calvarium and visualized facial bones appear intact, without suspicious lesions. Sinuses: Visualized sinuses and mastoids are clear. IMPRESSION: 1. No acute intracranial abnormalities. Dictated by: Meme Siegel M.D. on 11/10/2023 at 8:00 Approved by: Meme Siegel M.D. on 11/10/2023 at 8:02 [facility] Narrative Medical decision making narrative: After multiple doses of benzodiazepines the patient did become calm. She was never completely sedated but is somnolent. The soft restraints were removed once the patient calmed down. She became more oriented. It appears that she has had seizures in the past. Is not on any antiseizure medications. There was no signs of trauma. We will hold on a head CT for now that we know that she has had seizures in the past. The patient just going to need to wake up and become more oriented and ambulate and tolerate oral intake. Care turned over to day provider to follow up and disposition. 11/10/23 Dr. Arriaza: Patient signed out to myself by Dr. Carmona. Patient seen and evaluated by myself. Patient is conversant. She notes that she did have a prior seizure about 2 years ago while riding in the car with her . She was seen at [facility]. She states she was discharged home her physicians had wished that she had had a head CT with contrast for further evaluation but is not on any antiseizure medications. Patient currently is on Prozac, levothyroxine, liothyronine and estrogen. 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 She describes broken up sleeping pattern when working single night week. But states the rest of the week she is on day schedule. Patient's labs were reviewed. UDS positive for for benzodiazepine, patient received several doses here in the department prior to giving a sample. Head CT shows no acute change. Patient has been eating and drinking here in the department, she is ambulated to the bathroom without issue. She has not had any additional seizure activity. [place] appropriate for discharge home. Discussed follow-up, decreased alcohol intake, discussed with the physician whether or not to continue her Prozac as this also Jj seizure threshold. Suspect combination of working night club manager, home medications, alcohol use and possible underlying seizure disorder with having had a prior event may have contributed to patient's seizure activity overnight. Spoke with patient and her mother. Mother notes she had a lot of vasovagal syncope as a child but she would be sleepy afterwards. She has a primary care but never saw a neurologist growing up. And they report that several years ago she did have an episode where she woke up in the bathtub fully clothed with a cut on her tongue like she had bit it. She had gone to sleep in her bed. Discharge Plan Departure Patient Disposition: Home Clinical Impression: Seizure Instructions: Seizure Safety Precautions-Adult Activity Restrictions/Additional Instructions: Follow up with your physician this week, I also recommend they follow up with Neurology. Contact information is included below please call to set up a follow up appointment. If you have any additional seizure activity you should start antiseizure medication. Some your medications including Prozac and combination with alcohol can decrease your seizure threshold or make seizures were unlikely. Talk with your physician about whether continue Prozac but I would decrease your alcohol consumption or stop entire you. No driving until you are cleared by your physician or Neurology. Avoid any high-risk activities, no swimming alone or other activities that would put you in danger if you were to lose consciousness suddenly. Please return fevers, severe headache, altered mental status, recurrent seizure-like activity, new numbness weakness, difficulty with movement, speech changes, persistent vomiting or other new or concerning changes. Prescriptions: No Action cholecalciferol (vitamin D3) 10,000 unit tablet 10,000 unit PO QWEEK Qty: 12 3RF fluoxetine 20 mg capsule 40 mg PO DAILY Qty: 180 3RF levothyroxine 125 mcg tablet 125 mcg PO DAILY Qty: 90 3RF liothyronine 5 mcg tablet 10 mcg PO DAILY Qty: 180 3RF triamcinolone acetonide 0.1 % Cream 1 applic TOPICAL BID Patient Comments: apply twice daily to eczema x 2 weeks. then 1 week off. repeat cycle as needed Referrals: Jerrell Mcbride MD [Non-Staff] - Stand Alone Forms: Patient Portal/API, Work Release Note
[2023-11-10] MEDS: MIDAZOLAM 5 MG/ML VIAL IM (05:27)
[2023-11-10] MEDS: LORazepam 2 MG/ML INJ IM (05:27)
[2023-11-10] MEDS: LORazepam 2 MG/ML INJ 1 MG IV (05:28)
[2023-11-10 05:33] LABS: Add Manual Diff / Slide Review NO; Basophils Absolute Auto 100 /uL (0-100); Basophils Percent Auto 0.6 % (0-2); Eosinophils Absolute Auto 200 /uL (0-450); Eosinophils Percent Auto 1.3 % (2-4); Hematocrit 43.4 % (36-46); Hemoglobin 14.4 g/dL (12.0-16.0); Lymphocytes Absolute Auto 6900 /uL (1100-4500); Lymphocytes Percent Auto 53.1 % (25-40); Mean Corpuscular HGB Conc 33.3 % (30-36); Mean Corpuscular Volume 93.3 fL (80-100); Monocytes Absolute Auto 1200 /uL (0-900); Monocytes Percent Auto 9.4 % (3-14); Neutrophils Absolute Auto 4600 /uL (1500-7000); Neutrophils Percent Auto 35.6 % (50-75); Platelet Count 387 X10^3/uL (150-400); Red Blood Cell Count 4.65 X10^6/uL (4.0-5.2); Red Cell Distribution Width 12.8 % (11.6-14.8); White Blood Cell Count 12.9 X10^3/uL (4.5-11.0)
[2023-11-10 05:54] LABS: Ethanol (ETOH) < 10 mg/dL; Lipase 335 U/L (23-300)
[2023-11-10 05:55] LABS: Alanine Aminotransferase 21 IU/L (<35); Albumin 4.9 g/dL (3.5-5.0); Albumin Globulin Ratio 1.8 (1.0-2.8); Alkaline Phosphatase 65 U/L (38-126); Aspartate Aminotransferase 31 IU/L (14-36); BUN Creatinine Ratio 21.2 (6-22); Bilirubin Total 0.7 mg/dL (0.2-1.3); Blood Urea Nitrogen 14 mg/dL (7-17); Calcium 9.7 mg/dL (8.4-10.2); Carbon Dioxide 16 mmol/L (22-32); Chloride 103 mmol/L (98-107); Estimated Glomerular Filt Rate > 60 mL/min (>60); Globulin 2.8 g/dL (1.7-4.1); Glucose 121 mg/dL (70-100); HEMOLYSIS < 15 (0-50); Potassium 3.7 mmol/L (3.4-5.1); Sodium 137 mmol/L (137-145); Total Protein 7.7 g/dL (6.3-8.2)
[2023-11-10 06:11] LABS: Procalcitonin < 0.030 ng/mL (<0.5)
--- NOTE | 2023-11-10 06:27 | PC.NURSE ---
Phone calls made on the pts behalf to her w her cell phone. Pt states that she is okay wi phone calls being made to her (Will). Pt states that her son may answer. Son called by the pt, this RN spoke to him about the pts condition and events. Pts son states that he lives in [place] and will make phone calls to family on the pts behalf. He also states that he may be coming in himself. Pt is GCS of 14 w confusion but is able to answer some questions correctly.
[2023-11-10 06:43] LABS: Thyroid Stimulating Hormone 5.49 uIU/mL (0.47-4.68)
--- NOTE | 2023-11-10 07:18 | DI.CT.S_ITS ---
PROCEDURE: CT HEAD/BRAIN WO/W CON INDICATIONS: seizure, 2nd time. physician requested. TECHNIQUE: 4.5 mm thick angled axial sections acquired from the foramen magnum to the vertex before and after the administration of intravenous contrast, with coronal and sagittal reformats. For radiation dose reduction, the following was used: automated exposure control, adjustment of mA and/or kV according to patient size. COMPARISON: MR, MR BRAIN W&WO CON, 07/09/2016, 10:52. [facility], CT, CT BRAIN WO CON, 06/26/2016, 12:06. FINDINGS: Image quality: Excellent. CSF Spaces: Basal cisterns are patent. No extra-axial fluid collections. Ventricles are normal in size and shape. Brain: No midline shift. No intracranial bleeds or masses. No abnormal intracranial enhancement. Franco-white interface appears normal. Skull and face: Calvarium and visualized facial bones appear intact, without suspicious lesions. Sinuses: Visualized sinuses and mastoids are clear. IMPRESSION: 1. No acute intracranial abnormalities. Dictated by: Meme Siegel M.D. on 11/10/2023 at 8:00 Approved by: Meme Siegel M.D. on 11/10/2023 at 8:02
[2023-11-10] MEDS: ACETAMINOPHEN 325 MG TABLET 650 MG PO (07:30)
[2023-11-10 08:17] LABS: UR Morphine/Opiate cutoff 300 Negative (Negative); Ur Creatinine Normal (Normal); Ur Specific Gravity Normal (Normal); Urine Amphetamines Negative (Negative); Urine Barbiturates Negative (Negative); Urine Benzodiazepines Positive (Negative); Urine Cocaine Negative (Negative); Urine MDMA Negative (Negative); Urine Methadone Negative (Negative); Urine Methamphetamines Negative (Negative); Urine Oxycodone Negative (Negative); Urine Phencyclidine Negative (Negative); Urine Tetrahydrocannabinol Negative (Negative); Urine Tricyclic Antidepressant Negative (Negative); Urine pH Normal (Normal)
== END 2023-11-10 09:15 | disposition home or self-care (01) ==
PROVIDERS: Emergency Medicine; Emergency Provider Emergency Medicine
DX: R56.9 Unspecified convulsions (principal)
CPT/HCPCS: 36415; 70470; 80053; 80305; 80320; 83690; 84145; 84443; 85025; 96372; 96374; 99284; 99285; J2060; J2250; Q9967